=== PATIENT | male | born 1970 | race Caucasian/White ===

== ENCOUNTER 2022-09-05 16:50 | Emergency (ER) | payer MEDICARE ==
[2022-09-05] MEDS ORDERED: Flagyl 500 MG PO ONE ×2 (16:51→19:35)
[2022-09-05 17:11] VITALS: O2SAT 97
[2022-09-05] MEDS ORDERED: TORAdol 30 mg Injection IV ONE (17:15)
[2022-09-05] MEDS ORDERED: Sodium Chloride 0.9% 1000 ML 1,000 ML IV STA (17:15)
[2022-09-05] MEDS ORDERED: MORPHINE SULFATE 4 MG INJ IV ONE (17:15)
[2022-09-05] MEDS ORDERED: Zofran 4 MG/2 ML VIAL IV ONE (17:15)
[2022-09-05 17:16] VITALS: BP 121/76
[2022-09-05] MEDS ORDERED: Zofran 4 MG/2 ML VIAL ONE (17:19)
[2022-09-05] MEDS ORDERED: Sodium Chloride 0.9% 1000 ML 1,000 ML ONE (17:20)
[2022-09-05] MEDS ORDERED: MORPHINE SULFATE 4 MG INJ ONE (17:20)
[2022-09-05] MEDS ORDERED: TORAdol 30 mg Injection ONE (17:20)
--- NOTE | 2022-09-05 17:33 | ERPHSYRPT ---
- History of Present Illness Time Seen by Provider: 09/05/22 16:57 Historian: patient Exam Limitations: no limitations Patient Subjective Stated Complaint: C/O right flank pain and "sour stomach" for 4-5 days. Triage Nursing Assessment: Patient ambulated back to ED with a slow gait; gaurding his right side. He is alert and oriented. No SOB. His right flank and abdomen is tender to touch. Physician History: 52-year-old male presented in the ER with chief complaint of right flank/right lower quadrant pain with some radiation to the right groin, moderate to severe sharp for the last 4 to 5 days with progressive worsening. Reports associated nausea and vomiting and having some difficulty urination. Denies any hematuria but has dark urine. Does have history of kidney stones. No fever or chills reported. Timing/Duration: day(s) (4), gradual onset, worse Activities at Onset: rest Quality: sharpness Abdominal Pain Onset Location: RUQ, RLQ, flank Pain Radiation: groin Severity of Pain-Max: severe Severity of Pain-Current: severe Modifying Factors: Worsens With: movement, palpation Associated Symptoms: nausea, vomiting, No fever/chills Previous symptoms: no prior history Allergies/Adverse Reactions: Iodinated Contrast Media Allergy (Verified 09/05/22 17:12) Home Medications: Citalopram Hydrobromide [Celexa] 1 tab PO DAILY 09/05/22 [History] Dexlansoprazole [Dexlansoprazole Dr] 1 tab PO DAILY 09/05/22 [History] Divalproex Sodium 1 tab PO TID 09/05/22 [History] Gabapentin [Neurontin] 1 tab PO TID 09/05/22 [History] Meloxicam 1 tab PO DAILY 09/05/22 [History] Promethazine HCl 1 tab PO DAILY 09/05/22 [History] Quetiapine Fumarate 1 tab PO BID 09/05/22 [History] Ropinirole HCl 3 tab PO HS 09/05/22 [History] Hx Tetanus, Diphtheria Vaccination/Date Given: Yes Hx Influenza Vaccination/Date Given: Yes Hx Pneumococcal Vaccination/Date Given: No Immunizations Up to Date: Yes Travel Risk - International Travel Have you traveled outside of the country in past 3 weeks: No - Coronavirus Screening Are you exhibiting any of the following symptoms?: Yes Symptoms: Vomiting/Diarrhea, Headaches/Body Aches/Fatigue Close contact with a COVID-19 positive Pt in past 14-21 Days: No - Vaccine Status Have you recieved a Covid-19 vaccination: Yes [employer]: Pfizer - Vaccination Dates Date of 2cond Vaccination (if applicable): 2020 - Review of Systems Constitutional: No Symptoms Eyes: No Symptoms Ears, Nose, & Throat: No Symptoms Respiratory: No Symptoms Cardiac: No Symptoms Abdominal/Gastrointestinal: Abdominal Pain, Nausea, Vomiting Genitourinary Symptoms: Dysuria Musculoskeletal: No Symptoms Skin: No Symptoms Neurological: No Symptoms Psychological: No Symptoms Endocrine: No Symptoms Hematologic/Lymphatic: No Symptoms Immunological/Allergic: No Symptoms - Past Medical History Pertinent Past Medical History: Yes Musculoskeletal History: Fractures GI Medical History: Gallbladder Disease, Pancreatitis History: Other Psycho-Social History: Anxiety, Bipolar, Depression Other Medical History: Kidney stones - Past Surgical History Past Surgical History: Yes Gastrointestinal: Cholecystectomy, Hernia Repair Other Surgical History: Right kidney stent and removal, TIPP - Social History Smoking Status: Current every day smoker How long have you smoked: 19 years Exposure to second hand smoke: No Drug Use: none Patient Lives Alone: No - Nursing Vital Signs Nursing Vital Signs: Initial Vital Signs Temperature 99.3 F 09/05/22 16:59 Pulse Rate 81 09/05/22 16:59 Respiratory Rate 20 09/05/22 16:59 Blood Pressure 121/76 09/05/22 16:59 O2 Sat by Pulse Oximetry 97 09/05/22 16:59 Pain Scale Pain Intensity 8 - Physical Exam General Appearance: no apparent distress, alert Eye Exam: PERRL/EOMI Ears, Nose, Throat Exam: normal ENT inspection Neck Exam: normal inspection, supple, full range of motion Respiratory Exam: normal breath sounds, lungs clear Cardiovascular Exam: regular rate/rhythm, normal heart sounds Gastrointestinal/Abdomen Exam: soft, normal bowel sounds, tenderness (Right flank/right upper and lower quadrant.) Back Exam: normal inspection, normal range of motion, CVA tenderness (Right side) Extremity Exam: normal inspection, normal range of motion Neurologic Exam: alert, oriented x 3, cooperative Skin Exam: normal color SpO2 Interpretation: normal SpO2: 97 O2 Delivery: Room Air Ordered Tests: Active Orders 24 hr Category Date Time Status IV Insertion STAT Care 09/05/22 17:15 Active NPO (ED) STAT Care 09/05/22 17:15 Active ABDOMEN AND PELVIS W/0 CONTRAS [CT] Stat Exams 09/05/22 17:15 Taken CBC W DIFF Stat Lab 09/05/22 17:38 Completed CMP Stat Lab 09/05/22 17:38 Completed CULTURE,URINE Stat Lab 09/05/22 17:38 Received LIPASE Stat Lab 09/05/22 17:38 Completed Lactic Acid Stat Lab 09/05/22 17:15 Completed UA W/RFX CULTURE Stat Lab 09/05/22 17:38 Completed Medication Summary Discontinued Medications Generic Name Dose Route Start Last Admin Trade Name Percy PRN Reason Stop Dose Admin Sodium Chloride 1,000 mls @ 999 mls/hr 09/05/22 17:15 09/05/22 18:39 Sodium Chloride 0.9% 1000 Ml IV 09/05/22 18:15 Infused .Q1H1M STA Infusion Sodium Chloride Confirm 09/05/22 17:20 Sodium Chloride 0.9% 1000 Ml Administered 09/05/22 17:21 Dose 1,000 mls @ ud .ROUTE .STK-MED ONE Ketorolac Tromethamine 30 mg 09/05/22 17:15 09/05/22 17:21 Ketorolac Tromethamine 30 Mg/Ml Inj IV 09/05/22 17:16 30 mg STAT ONE Administration Ketorolac Tromethamine Confirm 09/05/22 17:20 Ketorolac Tromethamine 30 Mg/Ml Inj Administered 09/05/22 17:21 Dose 30 mg .ROUTE .STK-MED ONE Levofloxacin 500 mg 09/05/22 19:35 Levofloxacin 500 Mg Tablet PO 09/05/22 19:36 STAT ONE Metronidazole 500 mg 09/05/22 19:35 Metronidazole 500 Mg Tablet PO 09/05/22 19:36 STAT ONE Morphine Sulfate 4 mg 09/05/22 17:15 09/05/22 17:22 Morphine Sulfate 4 Mg/Ml Injection IV 09/05/22 17:16 4 mg STAT ONE Administration Morphine Sulfate Confirm 09/05/22 17:20 Morphine Sulfate 4 Mg/Ml Injection Administered 09/05/22 17:21 Dose 4 mg .ROUTE .STK-MED ONE Ondansetron HCl 4 mg 09/05/22 17:15 09/05/22 17:21 Ondansetron Hcl 4 Mg/2 Ml Vial IV 09/05/22 17:16 4 mg STAT ONE Administration Ondansetron HCl Confirm 09/05/22 17:19 Ondansetron Hcl 4 Mg/2 Ml Vial Administered 09/05/22 17:20 Dose 4 mg .ROUTE .STK-MED ONE Lab/Rad Data: Laboratory Result Diagrams 09/05/22 17:38 09/05/22 17:38 Laboratory Results 09/05/22 09/05/22 09/05/22 Range/Units 17:40 17:38 17:38 WBC (4.0-10.5) x10^3/uL RBC (4.1-5.6) x10^6/uL Hgb (12.5-18.0) g/dL Hct (42-50) % MCV (78-100) fL MCH (26-32) pg MCHC (32-36) g/dL RDW (11.5-14.0) % Plt Count (150-450) x10^3/uL MPV (7.5-11.0) fL Gran % (36.0-66.0) % Immature Gran % (Auto) (0.00-0.4) % Nucleat RBC Rel Count (0.00-0.1) % Eos # (Auto) (0-0.5) x10^3/uL Immature Gran # (Auto) (0.00-0.03) x10^3u/L Absolute Lymphs (auto) (1.0-4.6) x10^3/uL Absolute Monos (auto) (0.0-1.3) x10^3/uL Absolute Nucleated RBC (0.00-0.01) x10^3u/L Lymphocytes % (24.0-44.0) % Monocytes % (0.0-12.0) % Eosinophils % (0.00-5.0) % Basophils % (0.0-0.4) % Absolute Granulocytes (1.4-6.9) x10^3/uL Basophils # (0-0.4) x10^3/uL Sodium 137 (137-145) mmol/L Potassium 3.8 (3.5-5.1) mmol/L Chloride 104 (98-107) mmol/L Carbon Dioxide 20 L (22-30) mmol/L Anion Gap 17.7 H (5-15) MEQ/L BUN 19 (9-20) mg/dL Creatinine 1.09 (0.66-1.25) mg/dL Estimated GFR > 60.0 ML/MIN Glucose 107 H (74-106) mg/dL Lactic Acid (0.4-2.0) Calcium 10.0 (8.4-10.2) mg/dL Total Bilirubin 0.60 (0.2-1.3) mg/dL AST 27 (17-59) U/L ALT 22 (0-50) U/L Alkaline Phosphatase 120 (38-126) U/L Serum Total Protein 8.3 H (6.3-8.2) g/dL Albumin 4.9 (3.5-5.0) g/dL Lipase 86 (23-300) U/L Urinalys Dipstick Clnc MAIN LAB Urine Color YELLOW (YELLOW) Urine Appearance CLEAR (CLEAR) Urine pH 5.5 (5-6) Ur Specific [place] 1.025 (1.005-1.025) POC Urine Protein Conf 30 A (Negative) Urine Ketones >=160 A (NEGATIVE) Urine Nitrite NEGATIVE (NEGATIVE) Urine Bilirubin SMALL A (NEGATIVE) Urine Urobilinogen 0.2 (0-1) mg/dL Urine Leukocytes NEGATIVE (NEGATIVE) Urine WBC (Auto) 3-5 A (0-5) /HPF Urine RBC (Auto) NONE (0-2) /HPF U Epithel Cells (Auto) NONE (FEW) /HPF Urine Bacteria (Auto) NONE SEEN (NEGATIVE) /HPF Urine RBC SMALL A (0-5) Santy/ul Urine Mucus (Auto) SLIGHT A (NEGATIVE) /HPF Ur Culture Indicated? YES Urine Glucose NEGATIVE (NEGATIVE) mg/dL Influenza Type A Ag NEGATIVE (NEGATIVE) Influenza Type B Ag NEGATIVE (NEGATIVE) RSV (PCR) NEGATIVE (Negative) SARS-CoV-2 (PCR) NEGATIVE (NEGATIVE) 09/05/22 09/05/22 Range/Units 17:38 17:15 WBC 6.3 (4.0-10.5) x10^3/uL RBC 5.06 (4.1-5.6) x10^6/uL Hgb 15.3 (12.5-18.0) g/dL Hct 45.2 (42-50) % MCV 89.3 (78-100) fL MCH 30.2 (26-32) pg MCHC 33.8 (32-36) g/dL RDW 14.1 H (11.5-14.0) % Plt Count 227 (150-450) x10^3/uL MPV 10.4 (7.5-11.0) fL Gran % 60.4 (36.0-66.0) % Immature Gran % (Auto) 0.3 (0.00-0.4) % Nucleat RBC Rel Count 0.0 (0.00-0.1) % Eos # (Auto) 0.01 (0-0.5) x10^3/uL Immature Gran # (Auto) 0.02 (0.00-0.03) x10^3u/L Absolute Lymphs (auto) 1.86 (1.0-4.6) x10^3/uL Absolute Monos (auto) 0.58 (0.0-1.3) x10^3/uL Absolute Nucleated RBC 0.00 (0.00-0.01) x10^3u/L Lymphocytes % 29.4 (24.0-44.0) % Monocytes % 9.2 (0.0-12.0) % Eosinophils % 0.2 (0.00-5.0) % Basophils % 0.5 (0.0-0.4) % Absolute Granulocytes 3.82 (1.4-6.9) x10^3/uL Basophils # 0.03 (0-0.4) x10^3/uL Sodium (137-145) mmol/L Potassium (3.5-5.1) mmol/L Chloride (98-107) mmol/L Carbon Dioxide (22-30) mmol/L Anion Gap (5-15) MEQ/L BUN (9-20) mg/dL Creatinine (0.66-1.25) mg/dL Estimated GFR ML/MIN Glucose (74-106) mg/dL Lactic Acid 1.6 (0.4-2.0) Calcium (8.4-10.2) mg/dL Total Bilirubin (0.2-1.3) mg/dL AST (17-59) U/L ALT (0-50) U/L Alkaline Phosphatase (38-126) U/L Serum Total Protein (6.3-8.2) g/dL Albumin (3.5-5.0) g/dL Lipase (23-300) U/L Urinalys Dipstick Clnc Urine Color (YELLOW) Urine Appearance (CLEAR) Urine pH (5-6) Ur Specific [place] (1.005-1.025) POC Urine Protein Conf (Negative) Urine Ketones (NEGATIVE) Urine Nitrite (NEGATIVE) Urine Bilirubin (NEGATIVE) Urine Urobilinogen (0-1) mg/dL Urine Leukocytes (NEGATIVE) Urine WBC (Auto) (0-5) /HPF Urine RBC (Auto) (0-2) /HPF U Epithel Cells (Auto) (FEW) /HPF Urine Bacteria (Auto) (NEGATIVE) /HPF Urine RBC (0-5) Santy/ul Urine Mucus (Auto) (NEGATIVE) /HPF Ur Culture Indicated? Urine Glucose (NEGATIVE) mg/dL Influenza Type A Ag (NEGATIVE) Influenza Type B Ag (NEGATIVE) RSV (PCR) (Negative) SARS-CoV-2 (PCR) (NEGATIVE) - Progress Progress: improved Progress Note: 09/05/22 19:47 52-year-old is evaluated for abdominal pain with vomiting/diarrhea. Is given symptomatic treatment with fluids along with Zofran and morphine. Feeling much better on reevaluation. Work-up showed normal white count, some element of dehydration. No UTI. CT abdomen pelvis showed finding consistent with enterocolitis, started on Levaquin and Flagyl. CT also showed 3.5 cm mesenteric masslike lesion which need further evaluation with biopsy. I have discussed with Dr. Delfin Burgos and patient would follow-up outpatient with him. We will give him pain medication for symptomatic relief. Discussed signs symptoms of worsening needing return to ER which he seems understanding. Stable for discharge. Counseled pt/family regarding: lab results, diagnosis, need for follow-up, rad results - Departure Departure Disposition: Home Clinical Impression: Enterocolitis, Mesenteric mass Condition: Stable Critical Care Time: No Referrals: RELL ZUNIGA MD [Primary Care Provider] - Follow up/PCP as directed (In 2 days for reevaluation) DELFIN BURGOS MD [ACTIVE STAFF] - Follow up/PCP as directed (Call in 2 days for appointment for evaluation of mesenteric mass.) Instructions: Colitis Additional Instructions: Take pain medications as needed. Follow-up with primary care for reevaluation. Also follow-up with general surgery for reevaluation of mesenteric mass. Return to ER for intractable vomiting/diarrhea/fever chills abdominal pain etc. Prescriptions: Hydrocodone/Acetaminophen [Hydrocodone-Acetamin 5-325 mg] 1 tab PO Q6HPRN PRN 3 Days #7 tablet MDD 4 PRN Reason: Pain Ciprofloxacin [Cipro 500 MG] 500 mg PO BID #14 tablet Metronidazole 500 mg [Flagyl 500 MG] 500 mg PO TID #21 tablet
[2022-09-05 17:41] LABS: Absolute Neutrophil Ct (ANC) 3.82 x10^3/uL (1.4-6.9); Basophil (Absolute #) 0.03 x10^3/uL (0-0.4); Eosinophil % 0.2 % (0.00-5.0); Eosinophil (Absolute #) 0.01 x10^3/uL (0-0.5); Hematocrit 45.2 % (42-50); Hemoglobin 15.3 g/dL (12.5-18.0); Lymphocyte (Absolute #) 1.86 x10^3/uL (1.0-4.6); Lymphocytes % 29.4 % (24.0-44.0); Mean Cell Volume 89.3 fL (78-100); Mean Corpuscular Hemoglobin 30.2 pg (26-32); Mean Corpuscular Hgb Concent. 33.8 g/dL (32-36); Mean Platelet Volume 10.4 fL (7.5-11.0); Monocyte (Absolute #) 0.58 x10^3/uL (0.0-1.3); Monocytes % 9.2 % (0.0-12.0); Neutrophil % 60.4 % (36.0-66.0); Platelet Count 227 x10^3/uL (150-450); Red Blood Count 5.06 x10^6/uL (4.1-5.6); Red Cell Distribution Width 14.1 % (11.5-14.0); White Blood Count 6.3 x10^3/uL (4.0-10.5)
[2022-09-05 17:56] LABS: ALBUMIN 4.9 g/dL (3.5-5.0); ALKALINE PHOSPHATASE 120 U/L (38-126); ANION GAP 17.7 MEQ/L (5-15); BLOOD UREA NITROGEN 19 mg/dL (9-20); CHLORIDE 104 mmol/L (98-107); Carbon Dioxide 20 mmol/L (22-30); Creatinine 1 1.09 mg/dL (0.66-1.25); EST GLOMERULAR FILTRATION RATE > 60.0 ML/MIN; Glucose 107 mg/dL (74-106); LIPASE 86 U/L (23-300); Potassium 3.8 mmol/L (3.5-5.1); SGOT/AST 27 U/L (17-59); SGPT/ALT 22 U/L (0-50); SODIUM 137 mmol/L (137-145); Total Protein 8.3 g/dL (6.3-8.2)
[2022-09-05 18:03] LABS: Mucus SLIGHT /HPF (NEGATIVE)
[2022-09-05 18:04] LABS: Appearance CLEAR (CLEAR); Bilirubin SMALL (NEGATIVE); Dipstick done @ ? MAIN LAB; Glucose NEGATIVE (NEGATIVE); Ketones >=160 (NEGATIVE); Nitrite NEGATIVE (NEGATIVE); Ph 5.5 (5-6); Protein,Urine Dip 30 (Negative); RBC SMALL Ery/ul (0-5); Specific Gravity 1.025 (1.005-1.025); Urobilinogen 0.2 mg/dL (0-1)
[2022-09-05 18:05] LABS: Bacteria NONE SEEN /HPF (NEGATIVE); Urine Cultured Indicated? YES
[2022-09-05 18:18] LABS: INFLUENZA A NEGATIVE (NEGATIVE); INFLUENZA B NEGATIVE (NEGATIVE); RESPIRATORY SYNCTIAL VIRUS NEGATIVE (Negative); SARS-CoV-2 Xpert Express NEGATIVE (NEGATIVE)
[2022-09-05] MEDS ORDERED: Levofloxacin 500 MG Tablet PO ONE (19:35)
[2022-09-05] MEDS ORDERED: Levofloxacin 250MG Tablet PO ONE (19:54)
[2022-09-05] MEDS ORDERED: Levofloxacin 500 MG Tablet ONE (19:55)
[2022-09-05] MEDS ORDERED: NORCO 5/325 MG PO ONE (19:55)
[2022-09-05] MEDS ORDERED: Flagyl 500 MG ONE ×2 (19:56→20:05)
[2022-09-05] MEDS ORDERED: ZOFRAN ODT 4 MG PO PRN (19:56)
[2022-09-05] MEDS ORDERED: Levofloxacin 250MG Tablet ONE (20:05)
[2022-09-05] MEDS ORDERED: NORCO 5/325 MG ONE (20:05)
[2022-09-05 20:16] VITALS: PULSE 79
--- NOTE | 2022-09-05 21:46 | XRAY ---
Indication: Right flank pain. Multiple contiguous axial images obtained through the abdomen and pelvis without contrast. Comparison: None Lung bases clear. Heart not enlarged. Noncontrasted bowel loops appear nonobstructed with normal air-filled appendix. Midabdomen inferior to pancreas demonstrates irregular mesenteric opacity measuring at least 1.5 x 2.8 cm in greatest axial dimension. Adjacent tiny mesenteric nodes with mild diffuse mesenteric stranding. Lack of IV contrast precludes further characterization. Previous cholecystectomy. At least 2 left renal cysts largest in upper pole measuring 3.5 cm. No free fluid/air. Remaining liver, pancreas, spleen, adrenal glands, kidneys, ureters, bladder, and aorta are unremarkable for noncontrast exam. Osseous structures intact with minimal degenerative changes throughout the spine. No ventral or inguinal hernias. Impression: 1. Nonspecific mid mesenteric irregular soft tissue mass. Malignancy not completely excluded. PET/CT may yield further information. 2. Tiny mesenteric nodes with mesenteric stranding favoring mesenteric adenitis. 3. Left renal cysts. Comment: Preliminary interpretation made by C. No critical discrepancy.
[2022-09-05] MEDS ORDERED: Flagyl 500 MG PO SCH (22:00)
== END 2022-09-05 20:24 | disposition home or self-care (01) ==
LOC: ED 16:50
DX: K52.9 Noninfective gastroenteritis and colitis, unspecified (principal); K63.89 Other specified diseases of intestine; R10.31 Right lower quadrant pain; R11.2 Nausea with vomiting, unspecified; Z79.891 Long term (current) use of opiate analgesic; Z79.899 Other long term (current) drug therapy; Z72.0 Tobacco use; Z20.828 Contact with and (suspected) exposure to other viral communicable diseases
CPT/HCPCS: 0241U; 36000; 36415; 74176; 80053; 81015; 83605; 83690; 85025; 87086; 96360; 96374; 96375; 99284; J1885; J2270; J2405; Q0162; A9270-GY

== ENCOUNTER 2023-05-29 23:50 | Emergency (ER) | payer OTHER, MEDICARE ==
[2023-05-30] MEDS ORDERED: Pepcid 20 MG VIAL IV ONE ×2 (00:18→01:11)
[2023-05-30] MEDS ORDERED: PROTONIX 40 MG IV IV ONE ×2 (00:18→01:11)
[2023-05-30] MEDS ORDERED: Zofran 4 MG/2 ML VIAL IV ONE (00:18)
[2023-05-30] MEDS ORDERED: Sodium Chloride 0.9% 1000 ML 1,000 ML IV STA (00:18)
[2023-05-30 00:27] VITALS: TEMP 97.8
--- NOTE | 2023-05-30 00:45 | ERPHSYRPT ---
- History of Present Illness Time Seen by Provider: 05/30/23 00:40 Historian: patient, family Patient Subjective Stated Complaint: pt states that he hasn't had his dexilant due to insurance not approving it. unsure when he took medication last and reports that for the last 3 days he has had increased indigestion and right sided abdominal pain that today has significantly increased in intensity and frequency and is accompanied by nausea and vomiting. pt reports vomited 4-5times today and unsure what vomit looked like. LBM 05/29/23. states pain is constant ache with intermittent right sided abdominal cramping that is not tolerable. Triage Nursing Assessment: pt brought pt to room 6 via wheelchair and transfered self to ED cart independently with slow steady gait. pt is alert and oriented times three, able to speak in complete sentences, able to move all extremities, and with resp even and unlabored. abd obese, round, distended, tender to touch, and with positive bowel sounds in all quadrants. Physician History: Patient reports that for the last 3 days he has had increased indigestion and right sided abdominal pain that today has significantly increased in intensity and frequency and is accompanied by nausea and vomiting. pt reports vomited 4- 5times today and unsure what vomit looked like. LBM 05/29/23. states pain is constant ache with intermittent right sided abdominal cramping that is not tolerable. Patient had CT abdomen and pelvis few months ago was s/o possible mesenteric adenitis and/or Carcinoid. Patient has been on dexilant but his insurance is not covering it and costing him $ 102 Timing/Duration: week(s) Quality: cramping Abdominal Pain Onset Location: RUQ Pain Radiation: no radiation Modifying Factors: Improves With: nothing Associated Symptoms: nausea, vomiting Previous symptoms: same symptoms as today Allergies/Adverse Reactions: No Known Drug Allergies Allergy (Verified 05/30/23 00:17) Home Medications: Citalopram Hydrobromide [Celexa] 1 tab PO DAILY 09/05/22 [History] Dexlansoprazole [Dexlansoprazole Dr] 1 tab PO DAILY 09/05/22 [History] Divalproex Sodium 1 tab PO TID 09/05/22 [History] Gabapentin [Neurontin] 1 tab PO TID 09/05/22 [History] Promethazine HCl 1 tab PO DAILY PRN PRN 09/05/22 [History] Quetiapine Fumarate 1 tab PO TID 09/05/22 [History] Ropinirole HCl 2.75 mg PO HS 09/05/22 [History] Hx Tetanus, Diphtheria Vaccination/Date Given: No Hx Influenza Vaccination/Date Given: No Hx Pneumococcal Vaccination/Date Given: No Immunizations Up to Date: No Travel Risk - International Travel Have you traveled outside of the country in past 3 weeks: No - Coronavirus Screening Are you exhibiting any of the following symptoms?: No Close contact with a COVID-19 positive Pt in past 14-21 Days: No - Vaccine Status Have you recieved a Covid-19 vaccination: Yes Physician Industrial: Last Size - Vaccination Dates Date of 2cond Vaccination (if applicable): 2020 - Review of Systems Constitutional: No Fever, No Chills Eyes: No Symptoms Ears, Nose, & Throat: No Symptoms Respiratory: No Cough, No Dyspnea Cardiac: No Chest Pain, No Edema, No Syncope Abdominal/Gastrointestinal: Abdominal Pain, Nausea, Vomiting, No Diarrhea Genitourinary Symptoms: No Dysuria Musculoskeletal: No Back Pain, No Neck Pain Skin: No Rash Neurological: No Dizziness, No Focal Weakness, No Sensory Changes Psychological: No Symptoms Endocrine: No Symptoms All Other Systems: Reviewed and Negative - Past Medical History Pertinent Past Medical History: Yes Neurological History: No Pertinent History ENT History: No Pertinent History Cardiac History: No Pertinent History Respiratory History: No Pertinent History Endocrine Medical History: No Pertinent History Musculoskeletal History: Fractures GI Medical History: GERD, Gallbladder Disease, Pancreatitis History: Other Psycho-Social History: Anxiety, Bipolar, Depression Male Reproductive Disorders: No Pertinent History Other Medical History: Kidney stones - Past Surgical History Past Surgical History: Yes Neuro Surgical History: No Pertinent History Cardiac: No Pertinent History Respiratory: No Pertinent History Gastrointestinal: Cholecystectomy, Hernia Repair Genitourinary: No Pertinent History Musculoskeletal: No Pertinent History Male Surgical History: No Pertinent History Other Surgical History: Right kidney stent and removal, TIPP - Social History Smoking Status: Current every day smoker How long have you smoked: 33yo Exposure to second hand smoke: Yes Drug Use: none Patient Lives Alone: No - Nursing Vital Signs Nursing Vital Signs: Initial Vital Signs Temperature 97.8 F 05/30/23 00:18 Pulse Rate 104 H 05/30/23 00:18 Respiratory Rate 20 05/30/23 00:18 Blood Pressure 158/98 09/17/23 00:18 O2 Sat by Pulse Oximetry 97 05/30/23 00:18 Pain Scale Pain Intensity 9 - Physical Exam General Appearance: no apparent distress, alert Eye Exam: PERRL/EOMI, eyes nml inspection Ears, Nose, Throat Exam: normal ENT inspection, pharynx normal, moist mucous membranes Neck Exam: normal inspection, non-tender, supple, full range of motion Respiratory Exam: normal breath sounds, lungs clear, No respiratory distress Cardiovascular Exam: regular rate/rhythm, normal heart sounds Gastrointestinal/Abdomen Exam: soft, normal bowel sounds, No tenderness, No mass, No guarding Back Exam: normal inspection, normal range of motion, No CVA tenderness, No vertebral tenderness Extremity Exam: normal inspection, normal range of motion, pelvis stable Neurologic Exam: alert, oriented x 3, cooperative, normal mood/affect, nml cerebellar function, sensation nml, No motor deficits Skin Exam: normal color, warm, dry SpO2: 97 - Course Nursing assessment & vital signs reviewed: Yes EKG Interpreted by Me: Sinus Rhythm Ordered Tests: Active Orders 24 hr Category Date Time Status EKG-ER Only STAT Care 05/30/23 00:18 Active AMYLASE Stat Lab 05/30/23 00:49 Completed CBC W DIFF Stat Lab 05/30/23 00:49 Completed CMP Stat Lab 05/30/23 00:49 Completed TROPONIN Stat Lab 05/30/23 00:49 Completed UA W/RFX UR CULTURE Stat Lab 05/30/23 00:18 Ordered Medication Summary Discontinued Medications Generic Name Dose Route Start Last Admin Trade Name Freq PRN Reason Stop Dose Admin Famotidine 20 mg 05/30/23 00:18 05/30/23 01:15 Famotidine 20 Mg/1 Vial IV 05/30/23 00:19 20 mg STAT ONE Administration Famotidine Confirm 05/30/23 01:11 Famotidine 20 Mg/1 Vial Administered 05/30/23 01:12 Dose 20 mg IV .STK-MED ONE Sodium Chloride 1,000 mls @ 999 mls/hr 05/30/23 00:18 05/30/23 01:14 Sodium Chloride 0.9% 1000 Ml IV 05/30/23 01:18 999 mls/hr .Q1H1M STA Administration Sodium Chloride Confirm 05/30/23 01:11 Sodium Chloride 0.9% 1000 Ml Administered 05/30/23 01:12 Dose 1,000 mls @ ud .ROUTE .STK-MED ONE Ondansetron HCl 4 mg 05/30/23 00:18 05/30/23 01:15 Ondansetron Hcl 4 Mg/2 Ml Vial IV 05/30/23 00:19 4 mg STAT ONE Administration Ondansetron HCl Confirm 05/30/23 01:11 Ondansetron Hcl 4 Mg/2 Ml Vial Administered 05/30/23 01:12 Dose 4 mg .ROUTE .STK-MED ONE Pantoprazole Sodium 40 mg 05/30/23 00:18 05/30/23 01:15 Pantoprazole 40 Mg Vial IV 05/30/23 00:19 40 mg STAT ONE Administration Pantoprazole Sodium Confirm 05/30/23 01:11 Pantoprazole 40 Mg Vial Administered 05/30/23 01:12 Dose 40 mg IV .STK-MED ONE Lab/Rad Data: Laboratory Result Diagrams 05/30/23 00:49 05/30/23 00:49 Laboratory Results 05/30/23 05/30/23 Range/Units 00:49 00:49 WBC 10.8 H (4.0-10.5) x10^3/uL RBC 5.32 (4.1-5.6) x10^6/uL Hgb 15.6 (12.5-18.0) g/dL Hct 46.8 (42-50) % MCV 88.0 (78-100) fL MCH 29.3 (26-32) pg MCHC 33.3 (32-36) g/dL RDW 14.7 H (11.5-14.0) % Plt Count 273 (150-450) x10^3/uL MPV 10.3 (7.5-11.0) fL Gran % 74.1 H (36.0-66.0) % Immature Gran % (Auto) 0.3 (0.00-0.4) % Nucleat RBC Rel Count 0.0 (0.00-0.1) % Eos # (Auto) 0 (0-0.5) x10^3/uL Immature Gran # (Auto) 0.03 (0.00-0.03) x10^3u/L Absolute Lymphs (auto) 2.26 (1.0-4.6) x10^3/uL Absolute Monos (auto) 0.49 (0.0-1.3) x10^3/uL Absolute Nucleated RBC 0.00 (0.00-0.01) x10^3u/L Lymphocytes % 20.9 L (24.0-44.0) % Monocytes % 4.5 (0.0-12.0) % Eosinophils % 0.0 (0.00-5.0) % Basophils % 0.2 (0.0-0.4) % Absolute Granulocytes 8.03 H (1.4-6.9) x10^3/uL Basophils # 0.02 (0-0.4) x10^3/uL Sodium 138 (137-145) mmol/L Potassium 3.9 (3.5-5.1) mmol/L Chloride 101 (98-107) mmol/L Carbon Dioxide 22 (22-30) mmol/L Anion Gap 19.6 H (5-15) MEQ/L BUN 11 (9-20) mg/dL Creatinine 1.24 (0.66-1.25) mg/dL Estimated GFR > 60.0 ML/MIN Glucose 113 H (74-106) mg/dL Calcium 10.5 H (8.4-10.2) mg/dL Total Bilirubin 0.40 (0.2-1.3) mg/dL AST 34 (17-59) U/L ALT 35 (0-50) U/L Alkaline Phosphatase 104 (38-126) U/L Troponin I < 0.012 (0.000-0.034) ng/mL Serum Total Protein 8.7 H (6.3-8.2) g/dL Albumin 4.9 (3.5-5.0) g/dL Amylase 83 (30-110) U/L CT/ABDOMEN AND PELVIS W CONTRAST Indication: Sclerosing mesenteritis. Prebiopsy planning. Multiple contiguous axial images obtained through the abdomen and pelvis using 80 cc Isovue 370 contrast. Comparison: CT abdomen/pelvis without contrast September 05, 2022. Lung bases remain clear. Heart not enlarged. Noncontrasted stomach and bowel loops nonobstructed again with normal appendix. Grossly stable irregular mesenteric soft tissue opacity with diffuse stranding inferior to the pancreas again partially encompassing the superior mesenteric artery and mesenteric veins without critical stenosis/obstruction. No free fluid/air. Stable left renal cysts and cholecystectomy. Remaining liver, pancreas, spleen, adrenal glands, kidneys, ureters, and bladder are unremarkable. Again minimal aortoiliac calcifications. No AAA or pathologic retroperitoneal lymphadenopathy. Osseous structures intact again with minimal degenerative changes throughout the spine. Impression: 1. Grossly stable mid mesenteric irregular soft tissue opacity with diffuse mesenteric stranding as detailed. Partial differential offered includes sclerosing mesenteritis, mesenteric carcinoid tumor, mesenteric lymphadenopathy, and intraperitoneal focal fat infarction. 2. Again chronic findings including left renal cysts, minimal arteriosclerotic disease, and minimal degenerative spondylosis. Reported by: KRISTIN BURGESS DO Signed by: KRISTIN BURGESS DO Signed date/time: 10/29/[address]/ABDOMEN AND PELVIS W/0 CONTRAS Indication: Right flank pain. Multiple contiguous axial images obtained through the abdomen and pelvis without contrast. Comparison: None Lung bases clear. Heart not enlarged. Noncontrasted bowel loops appear nonobstructed with normal air-filled appendix. Midabdomen inferior to pancreas demonstrates irregular mesenteric opacity measuring at least 1.5 x 2.8 cm in greatest axial dimension. Adjacent tiny mesenteric nodes with mild diffuse mesenteric stranding. Lack of IV contrast precludes further characterization. Previous cholecystectomy. At least 2 left renal cysts largest in upper pole measuring 3.5 cm. No free fluid/air. Remaining liver, pancreas, spleen, adrenal glands, kidneys, ureters, bladder, and aorta are unremarkable for noncontrast exam. Osseous structures intact with minimal degenerative changes throughout the spine. No ventral or inguinal hernias. Impression: 1. Nonspecific mid mesenteric irregular soft tissue mass. Malignancy not completely excluded. PET/CT may yield further information. 2. Tiny mesenteric nodes with mesenteric stranding favoring mesenteric adenitis. 3. Left renal cysts. Comment: Preliminary interpretation made by [facility]. No critical discrepancy. Reported by: KRISTIN BURGESS DO Signed by: KRISTIN BURGESS DO Signed date/time: 09/05/22 2725 - Progress Progress: improved, pain not gone completely Counseled pt/family regarding: lab results, diagnosis, need for follow-up, rad results (Previous CT results d/w patient and his ) - Departure Departure Disposition: Home Clinical Impression: Nausea alone, Mesenteric mass Abdominal pain Qualifiers: Abdominal location: generalized Qualified Code(s): R10.84 - Generalized abdominal pain GERD with esophagitis Qualifiers: Esophagitis bleeding: without hemorrhage Qualified Code(s): K21.00 - Gastro- esophageal reflux disease with esophagitis, without bleeding Condition: Stable Critical Care Time: No Referrals: RELL ZUNIGA MD [Primary Care Provider] - Follow up/PCP as directed Instructions: Abdominal pain Additional Instructions: Discharge/Care Plan MINDY JOSÉ was seen on 05/30/23 in the Emergency Room. The patient was counseled regarding Diagnosis,Lab results, Imaging studies, need for follow up and when to return to the Emergency Room. Prescriptions given: Discharge Note I have spoken with the patient and/or caregivers. I have explained the patient's condition, diagnosis and treatment plan based on the information available to me at this time. I have answered the patient's and/or caregiver's questions and addressed any concerns. The patient and/or caregivers have as good understanding of the patient's diagnosis, condition and treatment plan as can be expected at this point. The vital signs have been stable. The patient's condition is stable and appropriate for discharge from the emergency department. The patient will pursue further outpatient evaluation with the primary care physician or other designated or consulting physician as outlined in the discharge instructions. The patient and/or caregivers are agreeable to this plan of care and follow-up instructions have been explained in detail. The patient and/or caregivers have received these instruction. The patient/and or caregivers are aware that any significant change in condition or worsening of symptoms should prompt an immediate return to this or the closest emergency department or call 911. MINDY JOSÉ was seen on 05/30/23 n the Emergency Room. At that time you were treated for an emergent condition, during your visit Laboratory, Radiology and/or other procedures may have been ordered. It is very important that you follow-up with your Primary Care Physician RELL ZUNIGA within the next 24-48 hours to review your Emergency Room visit and the final results of testing that was ordered. Some test results such as Urine Cultures, Blood Cultures, and other cultures if ordered will not be finalized for 24-48 hours. If you do not have a Primary Care Provider please call the medical records department at [phone] ext [phone] to obtain a copy of your results or you may sign into our patient portal to obtain these results by visiting us @ [email or web address] and completing the following steps: 1. Click on the Patient Portal link 2. Click the Patient Self Enrollment Link to complete the enrollment form and entering your 3. Once the enrollment form is completed you will receive an email with a temporary ID and password at the email address you provided. 4. Next choose a user name and password. Your user name must be at least 4 terese cters long and your password must be at least 4 characters long. 5. Choose a security question from the list and provide your answer to the question. If you already have signed into the Health Portal you may access your Health Care Information 05/04 by the following steps: 1. Login to our website @ [email or web address] 2. Enter your original user name and password. FAQS The [facility] Portal is an online tool that contains your Lab Results, Radiology Reports, Visit History, Discharge Instructions and Health Summary Lab and Radiology Results will not be available for 72 hours on the portal. The Portal is a secure site, passwords are encryted and URLs are re-written so they cannot be copied and pasted. You and authorized family members are the only ones who can access your Portal. Also there is a timeout feature that protects your information if you leave the Portal page open. If you have technical difficulty please use the Contact Us link on the page this will allow you to submit any questions you have regarding the Portal or you may contact the Medical Record Department at [phone] ext [phone]. Prescriptions: Prochlorperazine Maleate 5 mg* [Compazine 5 MG] 5 mg PO QID PRN #30 tablet PRN Reason: Nausea
[2023-05-30 00:52] LABS: Absolute Neutrophil Ct (ANC) 8.03 x10^3/uL (1.4-6.9); BASOPHIL % 0.2 % (0.0-0.4); Basophil (Absolute #) 0.02 x10^3/uL (0-0.4); Eosinophil (Absolute #) 0 x10^3/uL (0-0.5); Hematocrit 46.8 % (42-50); Hemoglobin 15.6 g/dL (12.5-18.0); IMMATURE GRAN # 0.03 x10^3u/L (0.00-0.03); IMMATURE GRAN % 0.3 % (0.00-0.4); Lymphocyte (Absolute #) 2.26 x10^3/uL (1.0-4.6); Lymphocytes % 20.9 % (24.0-44.0); Mean Corpuscular Hemoglobin 29.3 pg (26-32); Mean Corpuscular Hgb Concent. 33.3 g/dL (32-36); Mean Platelet Volume 10.3 fL (7.5-11.0); Monocyte (Absolute #) 0.49 x10^3/uL (0.0-1.3); Monocytes % 4.5 % (0.0-12.0); Neutrophil % 74.1 % (36.0-66.0); Platelet Count 273 x10^3/uL (150-450); Red Blood Count 5.32 x10^6/uL (4.1-5.6); Red Cell Distribution Width 14.7 % (11.5-14.0); White Blood Count 10.8 x10^3/uL (4.0-10.5)
[2023-05-30] MEDS ORDERED: Sodium Chloride 0.9% 1000 ML 1,000 ML ONE (01:11)
[2023-05-30] MEDS ORDERED: Zofran 4 MG/2 ML VIAL ONE (01:11)
[2023-05-30 01:17] LABS: ALBUMIN 4.9 g/dL (3.5-5.0); ALKALINE PHOSPHATASE 104 U/L (38-126); AMYLASE 83 U/L (30-110); ANION GAP 19.6 MEQ/L (5-15); BLOOD UREA NITROGEN 11 mg/dL (9-20); CHLORIDE 101 mmol/L (98-107); Calcium 10.5 mg/dL (8.4-10.2); Carbon Dioxide 22 mmol/L (22-30); Creatinine 1 1.24 mg/dL (0.66-1.25); EST GLOMERULAR FILTRATION RATE > 60.0 ML/MIN; Glucose 113 mg/dL (74-106); Potassium 3.9 mmol/L (3.5-5.1); SGOT/AST 34 U/L (17-59); SGPT/ALT 35 U/L (0-50); SODIUM 138 mmol/L (137-145); TROPONIN < 0.012 ng/mL (0.000-0.034); Total Protein 8.7 g/dL (6.3-8.2)
[2023-05-30 01:35] VITALS: RESP 18; O2SAT 99
[2023-05-30] MEDS ORDERED: Compazine 10 MG/2 ML IV ONE (01:35)
[2023-05-30] MEDS ORDERED: Compazine 10 MG/2 ML ONE (01:37)
[2023-05-30 02:26] VITALS: BP 123/82
[2023-05-30 02:28] VITALS: PULSE 73
== END 2023-05-30 02:26 | disposition home or self-care (01) ==
LOC: ED 23:50
DX: K21.00 Gastro-esophageal reflux disease with esophagitis, without bleeding (principal); R10.84 Generalized abdominal pain; R11.0 Nausea; R19.09 Other intra-abdominal and pelvic swelling, mass and lump; R10.11 Right upper quadrant pain; Z79.899 Other long term (current) drug therapy; Z72.0 Tobacco use
CPT/HCPCS: 36000; 36415; 80053; 82150; 83497; 84260; 84484; 85025; 93005; 96360; 96374; 96375; 99284; J2405